=== PATIENT | male | born 1950 | race Caucasian/White ===

== ENCOUNTER 2016-12-17 14:23 | Emergency (ER) | payer MEDICARE, BC ==
[2016-12-17] MEDS ORDERED: KETOROLAC TROMETHAMINE 30 MG/ML VIAL IM ONE (14:26)
[2016-12-17] MEDS ORDERED: KETOROLAC TROMETHAMINE 30 MG/ML VIAL ONE (14:40)
[2016-12-17 14:58] LABS: Hematocrit 38.3 % (42.0-52.0); Hemoglobin 12.7 gm/dL (13.5-18.0); Mean Cell Volume 86.5 fl (78-100); Mean Corpuscular Hemoglobin 28.7 pg (27-31); Mean Corpuscular Hgb Conc 33.2 g/dl (32-36); Mean Platelet Volume 9.7 fl (6.0-9.5); Neutrophil % 75.3 % (42-75.0); Platelet Count 360 K/mm3 (150-450); Red Blood Count 4.43 M/mm3 (4.7-6.0); Red Cell Distribution Width 14.5 % (11.5-14.0); White Blood Count 6.6 K/mm3 (4.0-10.5)
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
[2016-12-17 15:05] LABS: Albumin * 3.9 gm/dl (3.4-5.0); Anion Gap 15.4 mmol/L (6.8-13.8); BUN/Creatinine Ratio 12.7 (9.0-21.6); Bilirubin, Total 0.3 mg/dL (0.0-1.1); Ca. Corrected For Albumin 8.3 mg/dL (8.4-10.2); Calcium * 8.5 mg/dL (7.9-10.9); Carbon Dioxide 22.8 mmol/L (24-32.6); Potassium 4.2 mmol/L (3.4-4.6); Total Protein 6.7 gm/dL (6.2-8.2)
[2016-12-17] MEDS ORDERED: NORMAL SALINE 1,000 ML IV ONE (15:16)
--- OUTSIDE RECORDS SUMMARY | 2016-12-17 16:23 | XMS REPORT | Continuity of Care Document ---
:1950 Author Organization [facility] ([facility]) Address [address] [place] [address] Phone [phone] Care Team Providers Name Role Phone Dylan Lomax Primary Care Provider [phone] Source Comments This disclosure is being made pursuant to the Care Everywhere program, applicable federal and state laws, and may not contain all informaitonavailable regarding this patient.[facility] ([facility]) Active Allergies and Adverse Reactions Allergen Noted Date Severity Reactions Comments Penicillins 01/05/2015 Urticaria (Hives) Sulfa (Sulfonamide Antibiotics) 01/05/2015 Urticaria (Hives) Current Medications Prescription Sig. Disp. Refills Start Date End Date Status irbesartan 300 mg Take 450 mg by mouth Active tablet daily levothyroxine 88 Take 88 mcg by mouth Active mcg tablet every morning before breakfast. metoPROLol Take 100 mg by mouth Active succinate 100 mg XL daily. tablet rOPINIRole 0.5 mg Take 0.5 mg by mouth Active tablet at bedtime. multivitamin tablet Take 1 Tab by mouth Active daily. mometasone 50 use 2 Sprays into Active mcg/Actuation nasal both nostrils daily spray as needed. acetaminophen 325 Take 2 Tabs by mouth 30 Tab 0 01/23/2015 Active mg tablet every 4 hours as needed. Indications: FEVER, PAIN albuterol 2.5 mg/3 Use 3 mL by 180 mL 0 01/23/2015 Active mL inhalation inhalation every 4 solution hours as needed. Indications: dyspnea, wheezing albuterol-ipratropi Use 3 mL by 30 mL 0 01/23/2015 Active um 2.5-0.5 mg/3 mL inhalation 2 times inhalation solution daily. Indications: pulmonary hygiene azaTHIOprine Take 1 Tab by mouth 30 Tab 0 01/23/2015 Active (AZASAN) 75 mg 2 times daily. tablet Indications: Myastenia Gravis clonazePAM 1 mg Take 1 Tab by mouth 10 Tab 0 01/23/2015 Active tablet at bedtime. Indications: sleep, anxiety insulin glargine inject 30 Units 10 mL 0 01/23/2015 Active (LanTUS) 100 subcutaneously unit/mL injection daily. Indications: vial DM2 w/ steroid induced hyperglycemia insulin lispro inject 15 Units 10 mL 0 01/23/2015 Active (HumaLOG) 100 subcutaneously 3 unit/mL injection times daily with vial meals. Indications: TYPE 2 DIABETES MELLITUS insulin lispro inject 2-10 Units 10 mL 11 01/23/2015 Active (HumaLOG) 100 subcutaneously 3 unit/mL injection times daily with vial meals. Gluc 150 or < no insulin; 151-200 2u; 201-250 4u; 251-300 6u; 301-350 8u; 351-400 10u; > 400 call provider Indications: TYPE 2 DIABETES MELLITUS pantoprazole 40 mg Take 1 Tab by mouth 60 Tab 0 01/23/2015 Active EC tablet 2 times daily. Indications: GIB d/t Steroids predniSONE 20 mg Take 3 Tabs by mouth 30 Tab 0 01/23/2015 Active tablet daily. Indications: Myastehia crisis - continue until seen by neurology 1 month traZODone 50 mg Take 1 Tab by mouth 30 Tab 0 01/23/2015 Active tablet at bedtime. Indications: sleep, anxiety escitalopram Take 10 mg by mouth Active oxalate 10 mg daily tablet mycophenolate Take 1 tablet (500 180 tablet 3 09/23/2016 Active mofetil 500 mg mg total) by mouth 2 tablet times daily. Active Problems Patient Care Coordination Note GOALS OF CARE AND TREATMENT PREFERENCES Patients Communication Style/Preference per patient: open/direct/ straightforward Diagnosis: Myasthenia crisis Prognosis: guarded Goal(s) of Care: remission Is the patient an inpatient? Yes. How did the team arrive at the current code status? discussion with patient Code status is: Partial: DNR, ok to intubate for short term Patient able to make own decisions?: Yes Problem Noted Date Myasthenia gravis, AChR antibody positive (3.74) 11/28/2015 Fever 01/11/2015 Acute respiratory failure with hypoxia 01/06/2015 Hyponatremia 01/06/2015 Myasthenia gravis, bulbar 01/05/2015 HTN (hypertension) 01/05/2015 HLD (hyperlipidemia) 01/05/2015 DM (diabetes mellitus) 01/05/2015 Hypothyroidism 01/05/2015 Lactic acidosis 01/05/2015 Troponin level elevated 01/05/2015 Metabolic alkalosis 01/05/2015 Most Recent Encounters Date Type Specialty Providers Description 09/22/2016 Refill Neurology Sonny Bhakta MD Dx: Myasthenia gravis, bulbar (Primary Dx) Social History Tobacco Use Types Packs/Day Years Used Date Never Smoker Smokeless Tobacco: Never Used Tobacco Cessation:Counseling Given: Yes Comments: Last Filed Vital Signs Vital Sign Reading Time Taken Blood Pressure 188/86 08/23/2015 10:14 AM 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 Pulse 71 08/23/2015 10:14 AM 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 Temperature 37.2 C (99 F) 01/23/2015 8:42 AM CDT Respiratory Rate 16 01/23/2015 8:42 AM CDT Height 1.829 m (6' 0.01") 08/23/2015 10:14 AM 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 Weight 112.2 kg (247 lb 5.7 oz) 08/23/2015 10:14 AM 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 Body Mass Index 33.54 08/23/2015 10:14 AM 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 Oxygen Saturation 93% 01/23/2015 8:42 AM CDT Plan of Care Health Maintenance Due Date Last Done Comments Hepatitis B Vaccine (1 of 3 - Primary Series) 1950 Tdap Vaccine 1960 DIABETIC: Cholesterol 1967 Diabetic: Hdl 1967 Diabetic: Ldl 1967 DIABETIC: Microalbumin 1967 DIABETIC: Triglycerides 1967 Td Vaccine 1967 Colonoscopy 1999 Prostate Cancer Screening 1999 Zoster Vaccine 2009 Pneumococcal Vaccine (1 of 2 - PCV13) 2014 DIABETIC: Foot Exam 01/05/2015 DIABETIC: Retinal Eye Exam 01/05/2015 DIABETIC: Hemoglobin A1C 07/14/2015 01/11/2015 Influenza Vaccine: Seasonal (#1) 05/19/2016 HCV Screening Completed 01/22/2015 Results from Last 3 Months Not on file
[2016-12-17 16:32] VITALS: BP 138/79
== END 2016-12-17 17:29 | disposition home or self-care (01) ==
LOC: ER 14:23
DX: S30.0XXA Contusion of lower back and pelvis, initial encounter (principal); S70.01XA Contusion of right hip, initial encounter; W18.30XA Fall on same level, unspecified, initial encounter; Z91.81 History of falling; Y93.01 Activity, walking, marching and hiking

== ENCOUNTER 2019-08-07 11:00 | Inpatient (IN) ==
[2019-08-07] MEDS ORDERED: NORMAL SALINE 1,000 ML IV ONE (11:30)
[2019-08-07 11:56] LABS: Hematocrit 28.6 % (42.0-52.0); Hemoglobin 10.3 gm/dL (13.5-18.0); Mean Cell Volume 93.8 fl (78-100); Mean Corpuscular Hemoglobin 33.8 pg (27-31); Mean Platelet Volume 8.4 fl (8-11.3); Platelet Count 333 K/mm3 (150-450); Red Blood Count 3.05 M/mm3 (4.7-6.0); Red Cell Distribution Width 12.9 % (11.5-14.0); White Blood Count 20.4 K/mm3 (4.0-10.5)
[2019-08-07 12:03] LABS: Total Cells Counted 100
[2019-08-07 12:09] LABS: Albumin * 3.1 gm/dl (3.4-5.0); Anion Gap 13.1 mmol/L (6.8-13.8); BUN/Creatinine Ratio 10.7 (9.0-21.6); Bilirubin, Total 0.7 mg/dL (0.0-1.1); Ca. Corrected For Albumin 8.2 mg/dL (8.4-10.2); Calcium * 7.8 mg/dL (7.9-10.9); Carbon Dioxide 24.1 mmol/L (24-32.6); Potassium 3.2 mmol/L (3.4-4.6); Total Protein 5.5 gm/dL (6.2-8.2)
[2019-08-07 12:56] LABS: Urine Appearance Slightly Cloudy (CLEAR); Urine Bacteria 3+; Urine Bilirubin Negative (NEGATIVE); Urine Blood 25 /ul (NEGATIVE); Urine Color Yellow; Urine Ketone 5 mg/dL (NEGATIVE); Urine Nitrite Positive (NEGATIVE); Urine Protein Negative (NEGATIVE); Urine RBC None Seen /hpf (0-5); Urine Specific Gravity 1.025 SP.GR. (1.005-1.030); Urine Urobilinogen Normal (NORMAL)
[2019-08-07 13:17] LABS: Band 3 % (0-2.0); Lymphocyte 4 % (20-51); Monocyte 11 % (0-9); Neutrophil 82 % (42-75); Neutrophil # 16.7 K/mm3 (1.3-6.0); Platelet Estimate Normal (NORMAL)
[2019-08-07 13:18] LABS: RBC Morphology Normal (NORMAL)
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
[2019-08-07] MEDS ORDERED: LEVOFLOXACIN IN DEXTROSE 5 % 500 MG/100 ML BAG IV SCH (13:30)
[2019-08-07] MEDS ORDERED: ONDANSETRON HCL/PF 2 MG/ML VIAL IV ONE (13:38)
[2019-08-07] MEDS: NORMAL SALINE 1,000 ML IV PRN ×2 (13:42→22:14)
[2019-08-07] MEDS: LEVOFLOXACIN IN DEXTROSE 5 % 500 MG/100 ML BAG IV SCH (13:46)
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
[2019-08-07] MEDS ORDERED: POTASSIUM BICARBONATE/CIT AC 25 MEQ TABLET.EFF PO ONE (15:18)
[2019-08-07] MEDS ORDERED: FLU VACC QS2019-20(6MOS UP)/PF 60 MCG/0.5 ML SYRINGE IM ONE (17:00)
[2019-08-07] MEDS: rOPINIRole HCL 1 MG TABLET PO SCH (20:17)
[2019-08-07] MEDS: TAMSULOSIN HCL 0.4 MG CAP.SR.24H PO SCH (20:17)
[2019-08-07] MEDS: MYCOPHENOLATE MOFETIL 500 MG TABLET PO SCH (20:17)
[2019-08-07] MEDS: ACETAMINOPHEN 325 MG TABLET PO PRN (20:17)
[2019-08-08] MEDS: ACETAMINOPHEN 325 MG TABLET PO PRN (02:26)
[2019-08-08 05:41] LABS: Hematocrit 25.7 % (42.0-52.0); Mean Cell Volume 93.8 fl (78-100); Mean Corpuscular Hemoglobin 32.8 pg (27-31); Mean Platelet Volume 8.8 fl (8-11.3); Neutrophil % 86.5 % (42-75.0); Platelet Count 314 K/mm3 (150-450); Red Blood Count 2.74 M/mm3 (4.7-6.0); Red Cell Distribution Width 13.2 % (11.5-14.0); White Blood Count 16.2 K/mm3 (4.0-10.5)
[2019-08-08] MEDS: NORMAL SALINE 1,000 ML IV PRN ×3 (05:49→22:38)
[2019-08-08 05:59] LABS: Albumin * 2.5 gm/dl (3.4-5.0); Anion Gap 10.1 mmol/L (6.8-13.8); BUN/Creatinine Ratio 9.8 (9.0-21.6); Bilirubin, Total 0.8 mg/dL (0.0-1.1); Ca. Corrected For Albumin 8.7 mg/dL (8.4-10.2); Calcium * 7.8 mg/dL (7.9-10.9); Carbon Dioxide 24.4 mmol/L (24-32.6); Potassium 3.5 mmol/L (3.4-4.6); Total Protein 4.7 gm/dL (6.2-8.2)
[2019-08-08] MEDS ORDERED: FLU VACC QS2019-20(6MOS UP)/PF 60 MCG/0.5 ML SYRINGE IM ONE (09:00)
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
[2019-08-08] MEDS ORDERED: PHENAZOPYRIDINE HCL 100 MG TABLET PO PRN (09:51)
[2019-08-08] MEDS: LEVOTHYROXINE SODIUM 112 MCG TABLET PO SCH (10:40)
[2019-08-08] MEDS: FINASTERIDE 5 MG TABLET PO SCH (10:40)
[2019-08-08] MEDS: METOPROLOL SUCCINATE 100 MG TABLET.SA PO SCH (10:40)
[2019-08-08] MEDS: MYCOPHENOLATE MOFETIL 500 MG TABLET PO SCH ×2 (10:40→20:36)
[2019-08-08] MEDS: amLODIPine BESYLATE 10 MG TABLET PO SCH (10:40)
[2019-08-08] MEDS: IBUPROFEN 400 MG TABLET PO PRN ×2 (10:40→18:56)
[2019-08-08] MEDS: MULTIVITAMINS 1 CAP CAPSULE PO SCH (10:40)
[2019-08-08] MEDS: PHENAZOPYRIDINE HCL 100 MG TABLET PO SCH ×2 (14:51→18:56)
[2019-08-08] MEDS: LEVOFLOXACIN IN DEXTROSE 5 % 500 MG/100 ML BAG IV SCH (14:52)
[2019-08-08] MEDS: TAMSULOSIN HCL 0.4 MG CAP.SR.24H PO SCH (18:56)
[2019-08-08] MEDS: rOPINIRole HCL 1 MG TABLET PO SCH (20:36)
[2019-08-09] MEDS: IBUPROFEN 400 MG TABLET PO PRN ×3 (06:15→23:50)
[2019-08-09 06:23] LABS: Hematocrit 28.5 % (42.0-52.0); Hemoglobin 9.9 gm/dL (13.5-18.0); Mean Cell Volume 94.1 fl (78-100); Mean Corpuscular Hemoglobin 32.7 pg (27-31); Mean Corpuscular Hgb Conc 34.7 g/dl (32-36); Mean Platelet Volume 9.6 fl (8-11.3); Neutrophil # 11.1 K/mm3 (1.3-6.0); Neutrophil % 86.6 % (42-75.0); Platelet Count 349 K/mm3 (150-450); Red Blood Count 3.03 M/mm3 (4.7-6.0); Red Cell Distribution Width 13.2 % (11.5-14.0); White Blood Count 12.8 K/mm3 (4.0-10.5)
[2019-08-09 06:30] LABS: Albumin * 2.5 gm/dl (3.4-5.0); Anion Gap 9.2 mmol/L (6.8-13.8); BUN/Creatinine Ratio 7.3 (9.0-21.6); Bilirubin, Total 0.5 mg/dL (0.0-1.1); Ca. Corrected For Albumin 8.4 mg/dL (8.4-10.2); Calcium * 7.5 mg/dL (7.9-10.9); Carbon Dioxide 24.1 mmol/L (24-32.6); Potassium 3.3 mmol/L (3.4-4.6)
[2019-08-09] MEDS: NORMAL SALINE 1,000 ML IV PRN ×3 (06:43→20:41)
[2019-08-09] MEDS ORDERED: POTASSIUM CHLORIDE 20 MEQ TABLET.SA PO ONE (09:24)
--- NOTE | 2019-08-09 09:47 | PN ---
Subjective - Date and Time Seen Date: 08/09/19 Time: 09:38 Subjective Narrative: Patient was not very verbal during bedside evaluation this morning. Objective Objective Narrative: 69-year-old male admitted for UTI and a fall that occurred in his home 2 days ago as well as mild hyponatremia was evaluated at that bedside and was found to be afebrile and in no acute distress. Patient's hyponatremia persists despite IV fluid replacement, therefore his fluids were increased in order to treat his hyponatremia. He was also found to have hypokalemia after resolution was achieved yesterday therefore additional potassium chloride replacement was ordered. Follow-up BMP has been ordered for this afternoon for reevaluation of his electrolyte levels. CBC demonstrates improvement of leukocytosis and response to IV antibiotics, there has not been any recurrence of fever reported and patient maintained stable vitals. - Review of Systems Generalized/Overall Review: Reports: No Symptoms Reported EENTM: Reports: No Symptoms Reported Respiratory: Reports: No Symptoms Reported Cardiac: Reports: No Symptoms Reported Abdominal: Reports: No Symptoms Reported Genitourinary Symptoms: Reports: Dysuria Musculoskeletal Complaints: Reports: No Symptoms Reported Neurological: Reports: No Symptoms Reported Skin: Reports: No Symptoms Reported Endocrine: Reports: No Symptoms Reported - Vitals Vitals: Last Vital Signs Temp 37.3 C 08/09/19 06:40 Pulse 63 08/09/19 08:00 Resp 18 08/09/19 06:40 BP 131/61 08/09/19 06:40 Pulse Ox 96 08/09/19 06:40 - Abnormal Lab Findings Abnormal Lab Findings: Abnormal Lab Results 08/09/19 08/09/19 Range/Units 05:25 05:25 WBC 12.8 H D (4.0-10.5) K/mm3 RBC 3.03 L (4.7-6.0) M/mm3 Hgb 9.9 L (13.5-18.0) gm/dL Hct 28.5 L (42.0-52.0) % MCH 32.7 H (27-31) pg Immature Gran % (Auto) 0.80 H (0.001-0.429) % Immature Gran # (Auto) 0.10 H (0.000-0.0310) K/mm3 Neutrophils % 86.6 H (42-75.0) % Lymphocytes % 4.2 L (20-51) % Neutrophils # 11.1 H (1.3-6.0) K/mm3 Lymphocytes # 0.54 L (1.5-3.5) k/mm3 Sodium 126 L (132-142) mmol/L Plasma Sodium 127 L (130-142) mmol/L Potassium 3.3 L (3.4-4.6) mmol/L Chloride 96 L (97-106) mmol/L BUN 4 L (6-23) mg/dL Est GFR (Non-Af Amer) 157 H (60-130) mL/min BUN/Creatinine Ratio 7.3 L (9.0-21.6) Random Glucose 163 H (70-110) mg/dL Calcium 7.5 L (7.9-10.9) mg/dL Total Protein 5.0 L (6.2-8.2) gm/dL Albumin 2.5 L (3.4-5.0) gm/dl - Exam Constitutional: Present: Alert, Well developed, Well nourished, No distress, Elderly ENT Exam: Present: normal ENT inspection, hearing grossly normal, pharynx normal, TMs normal Neck: Present: non-tender, full range of motion, supple, normal inspection, trachea midline Breasts: Present: Exam deferred Respiratory: Present: chest non-tender, lungs clear, normal breath sounds, no respiratory distress, no accessory muscle use Cardiovascular/Chest: Present: normal peripheral pulses, regular rate, rhythm, no chest tenderness, no edema, no gallop, no JVD, no murmur, no rub Abdomen: Present: Normal bowel sounds, soft, nontender, nondistended, no rebound tenderness, no hepatospenomegaly, no masses /Rectal: Present: Exam deferred Extremity: Present: normal range of motion, non-tender, normal inspection, no pedal edema, no calf tenderness, normal capillary refill, pelvis stable Skin Exam: Present: normal color, warm/dry, no cyanosis Lymphatic: Present: no adenopathy Neurologic: Present: manager leasing II-XII nml as tested, normal cerebellar test, no motor/sensory deficits, alert Appearance: Present: appropriate appearance, neat, disheveled Eye contact: Present: good eye contact, normal speech, refused to answer, uncooperative Thoughts: Present: normal thought pattern, no apparent hallucination Assessment/Plan Plan Narrative: Patient was not very cooperative during bedside evaluation of this morning, when asked questions he does not respond in a coherent way therefore was difficult to assess his mental status. This may be because the patient was woken up from a nap that he was having in his chair. However he was alert awake and resting comfortably. We will continue to hydrate him with normal saline in order to treat his hyponatremia and administer IV antibiotics for his UTI. Follow-up labs have been ordered for tomorrow morning. - Problems/Diagnosis (1) Weakness Problem: Acute (2) Hyponatremia Problem: Acute (3) Leukocytosis Problem: Acute (4) UTI (urinary tract infection) Problem: Acute (5) Hypokalemia Problem: Acute
[2019-08-09] MEDS: LEVOTHYROXINE SODIUM 112 MCG TABLET PO SCH (10:22)
[2019-08-09] MEDS: MYCOPHENOLATE MOFETIL 500 MG TABLET PO SCH ×2 (10:22→20:42)
[2019-08-09] MEDS: MULTIVITAMINS 1 CAP CAPSULE PO SCH (10:22)
[2019-08-09] MEDS: PHENAZOPYRIDINE HCL 100 MG TABLET PO SCH ×3 (10:22→17:31)
[2019-08-09] MEDS: FINASTERIDE 5 MG TABLET PO SCH (10:22)
[2019-08-09] MEDS: METOPROLOL SUCCINATE 100 MG TABLET.SA PO SCH (10:26)
[2019-08-09] MEDS: amLODIPine BESYLATE 10 MG TABLET PO SCH (10:26)
[2019-08-09] MEDS: LEVOFLOXACIN IN DEXTROSE 5 % 500 MG/100 ML BAG IV SCH (14:02)
[2019-08-09 14:17] LABS: Anion Gap 10.2 mmol/L (6.8-13.8); BUN/Creatinine Ratio 7.8 (9.0-21.6); Calcium * 8.2 mg/dL (7.9-10.9); Carbon Dioxide 26.5 mmol/L (24-32.6); Estimated Creat Clear 117.9; Potassium 3.7 mmol/L (3.4-4.6)
[2019-08-09] MEDS: TAMSULOSIN HCL 0.4 MG CAP.SR.24H PO SCH (17:31)
[2019-08-09] MEDS: rOPINIRole HCL 1 MG TABLET PO SCH (20:43)
[2019-08-10] MEDS: NORMAL SALINE 1,000 ML IV PRN ×3 (02:29→16:09)
[2019-08-10 05:44] LABS: Hematocrit 29.8 % (42.0-52.0); Hemoglobin 10.4 gm/dL (13.5-18.0); Mean Corpuscular Hemoglobin 32.8 pg (27-31); Mean Corpuscular Hgb Conc 34.9 g/dl (32-36); Mean Platelet Volume 8.9 fl (8-11.3); Neutrophil # 7.5 K/mm3 (1.3-6.0); Neutrophil % 78.7 % (42-75.0); Platelet Count 419 K/mm3 (150-450); Red Blood Count 3.17 M/mm3 (4.7-6.0); Red Cell Distribution Width 12.9 % (11.5-14.0); White Blood Count 9.5 K/mm3 (4.0-10.5)
[2019-08-10 05:51] LABS: Anion Gap 9.7 mmol/L (6.8-13.8); BUN/Creatinine Ratio 5.6 (9.0-21.6); Carbon Dioxide 26.7 mmol/L (24-32.6); Estimated Creat Clear 139.7; Potassium 3.4 mmol/L (3.4-4.6)
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
[2019-08-10] MEDS: LEVOTHYROXINE SODIUM 112 MCG TABLET PO SCH (10:34)
[2019-08-10] MEDS: MYCOPHENOLATE MOFETIL 500 MG TABLET PO SCH ×2 (10:34→20:16)
[2019-08-10] MEDS: PHENAZOPYRIDINE HCL 100 MG TABLET PO SCH ×2 (10:34→13:10)
[2019-08-10] MEDS: FINASTERIDE 5 MG TABLET PO SCH (10:34)
[2019-08-10] MEDS: METOPROLOL SUCCINATE 100 MG TABLET.SA PO SCH (10:35)
[2019-08-10] MEDS: amLODIPine BESYLATE 10 MG TABLET PO SCH (10:35)
[2019-08-10] MEDS: MULTIVITAMINS 1 CAP CAPSULE PO SCH (10:35)
[2019-08-10] MEDS: IBUPROFEN 400 MG TABLET PO PRN (10:37)
[2019-08-10] MEDS: LEVOFLOXACIN IN DEXTROSE 5 % 500 MG/100 ML BAG IV SCH (13:10)
[2019-08-10] MEDS: TAMSULOSIN HCL 0.4 MG CAP.SR.24H PO SCH (17:12)
[2019-08-10] MEDS: PANTOPRAZOLE SODIUM 40 MG TABLET.EC PO SCH (18:32)
[2019-08-10] MEDS: ACETAMINOPHEN 325 MG TABLET PO PRN (18:39)
[2019-08-10] MEDS: rOPINIRole HCL 1 MG TABLET PO SCH (20:15)
[2019-08-11] MEDS: NORMAL SALINE 1,000 ML IV PRN (03:41)
[2019-08-11 05:57] LABS: Hematocrit 32.1 % (42.0-52.0); Mean Cell Volume 94.7 fl (78-100); Mean Corpuscular Hemoglobin 32.4 pg (27-31); Mean Corpuscular Hgb Conc 34.3 g/dl (32-36); Mean Platelet Volume 8.7 fl (8-11.3); Neutrophil # 6.9 K/mm3 (1.3-6.0); Neutrophil % 73.2 % (42-75.0); Platelet Count 460 K/mm3 (150-450); Red Blood Count 3.39 M/mm3 (4.7-6.0); White Blood Count 9.4 K/mm3 (4.0-10.5)
[2019-08-11 06:18] LABS: Albumin * 2.9 gm/dl (3.4-5.0); BUN/Creatinine Ratio 6.5 (9.0-21.6); Bilirubin, Total 0.5 mg/dL (0.0-1.1); Ca. Corrected For Albumin 8.8 mg/dL (8.4-10.2); Calcium * 8.2 mg/dL (7.9-10.9); Potassium 3.3 mmol/L (3.4-4.6); Total Protein 5.5 gm/dL (6.2-8.2)
[2019-08-11 06:27] LABS: Anion Gap 10.9 mmol/L (6.8-13.8); Carbon Dioxide 27.4 mmol/L (24-32.6)
[2019-08-11] MEDS: PANTOPRAZOLE SODIUM 40 MG TABLET.EC PO SCH (06:47)
[2019-08-11] MEDS: ACETAMINOPHEN 325 MG TABLET PO PRN ×2 (06:55→23:39)
[2019-08-11] MEDS: MYCOPHENOLATE MOFETIL 500 MG TABLET PO SCH ×2 (08:32→20:26)
[2019-08-11] MEDS: MULTIVITAMINS 1 CAP CAPSULE PO SCH (08:32)
[2019-08-11] MEDS: FINASTERIDE 5 MG TABLET PO SCH (08:33)
[2019-08-11] MEDS: amLODIPine BESYLATE 10 MG TABLET PO SCH (08:33)
[2019-08-11] MEDS: METOPROLOL SUCCINATE 100 MG TABLET.SA PO SCH (08:34)
[2019-08-11] MEDS: LEVOTHYROXINE SODIUM 112 MCG TABLET PO SCH (08:34)
[2019-08-11] MEDS ORDERED: POT CHLORIDE/POT BICARB/CIT AC 25 MEQ TABLET.EFF PO ONE (08:43)
[2019-08-11] MEDS: SODIUM CHLORIDE 1 GM TABLET PO SCH ×2 (10:09→20:26)
[2019-08-11] MEDS ORDERED: LEVOFLOXACIN 500 MG TABLET PO SCH (11:00)
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
[2019-08-11] MEDS ORDERED: ONDANSETRON 4 MG TAB.RAPDIS PO ONE (12:00)
[2019-08-11] MEDS: TAMSULOSIN HCL 0.4 MG CAP.SR.24H PO SCH (18:04)
[2019-08-11] MEDS: rOPINIRole HCL 1 MG TABLET PO SCH (20:26)
[2019-08-12 06:34] LABS: Anion Gap 11.3 mmol/L (6.8-13.8); BUN/Creatinine Ratio 9.7 (9.0-21.6); Bilirubin, Total 0.5 mg/dL (0.0-1.1); Ca. Corrected For Albumin 9.2 mg/dL (8.4-10.2); Calcium * 8.7 mg/dL (7.9-10.9); Carbon Dioxide 25.8 mmol/L (24-32.6); Potassium 4.1 mmol/L (3.4-4.6); Total Protein 5.2 gm/dL (6.2-8.2)
[2019-08-12] MEDS: PANTOPRAZOLE SODIUM 40 MG TABLET.EC PO SCH (07:31)
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
[2019-08-12] MEDS: amLODIPine BESYLATE 10 MG TABLET PO SCH (08:30)
[2019-08-12] MEDS: MULTIVITAMINS 1 CAP CAPSULE PO SCH (08:30)
[2019-08-12] MEDS: MYCOPHENOLATE MOFETIL 500 MG TABLET PO SCH (08:30)
[2019-08-12] MEDS: LEVOTHYROXINE SODIUM 112 MCG TABLET PO SCH (08:31)
[2019-08-12] MEDS: SODIUM CHLORIDE 1 GM TABLET PO SCH (08:31)
[2019-08-12] MEDS: FINASTERIDE 5 MG TABLET PO SCH (08:31)
[2019-08-12] MEDS: METOPROLOL SUCCINATE 100 MG TABLET.SA PO SCH (08:31)
[2019-08-12 10:46] VITALS: BP 123/69
== END 2019-08-12 10:45 | DRG 690 ==
LOC: MS 11:00 → ER 11:00 → MS 14:03
PROVIDERS: ADMIT Internal Medicine; ATTEND Internal Medicine
DX: B96.20 Unspecified Escherichia coli [E. coli] as the cause of diseases classified elsewhere; D72.829 Elevated white blood cell count, unspecified; E87.1 Hypo-osmolality and hyponatremia; E87.6 Hypokalemia; Z23 Encounter for immunization; N39.0 Urinary tract infection, site not specified; T76.11XA Adult physical abuse, suspected, initial encounter; T76.31XA Adult psychological abuse, suspected, initial encounter; E87.2 Acidosis; Z86.12 Personal history of poliomyelitis; R53.1 Weakness; I10 Essential (primary) hypertension; G70.00 Myasthenia gravis without (acute) exacerbation; E11.8 Type 2 diabetes mellitus with unspecified complications; M19.90 Unspecified osteoarthritis, unspecified site
CPT/HCPCS: 36415; 71020; 71046; 80048; 80053; 81001; 83605; 84145; 85025; 87040; 87086; 90686; 93005; 96365; 96375; 97110; 97116; 97161; 97530; 99285; G0378; J2405